=== PATIENT | female | born 1990 | race Caucasian/White ===

== ENCOUNTER 2016-11-13 22:21 | Emergency (ER) | payer OTHER ==
[~2016-11-13] VITALS: Ht 172.7 cm; Wt 70.3 kg
[~2016-11-13 22:21] MED LIST: AMOXIL500 MG PO; ANAPROX DS550 MG PO; ANUSOL-HC25 MG RC; AUGMENTIN 500 M1 TAB PO; CIPROFLOXACIN500 MG PO; CITRATE OF MAG300 ML PO; COMPAZINE10 MG PO; DIFLUCAN150 MG PO; DOXYCYCLINE MO100 MG PO; ELIMITE 5%60 GM PO; FLAGYL500 MG PO; HYDROXYZINE HCL25 MG PO; KEFLEX500 MG PO; LIDEX 0.05% CRE15 GM T; MACROBID100 M1 PO; MEDROL DOSEPAK4 MG PO; MIDRIN (DURADR1 CAP PO; MOTRIN600 MG PO; MOTRIN800 MG PO; NKHM; NKHM PO; PHENERGAN25 MG RC; PRENATAL1 TA1 PO; PRENATAL1 TA7 PO; PYRIDIUM100 MG PO; TORADOL10 MG PO; VIBRA-TAB100 MG PO; VIBRAMYCIN100 MG PO; VICODIN ES 7501 TA1 PO; ZITHROMAX250 MG PO; ZOFRAN ODT4 MG PO; ZOFRAN ODT4 MG SL; ZOFRAN4 MG PO; ZOFRAN8 MG PO; ZYRTEC10 MG PO
[2016-11-13 22:26] VITALS: BP 140/99
[2016-11-13] MEDS ORDERED: KEFLEX500 M1 PO (23:14)
[2016-11-13] MEDS ORDERED: NAPROSYN500 MG PO (23:14)
== END 2016-11-14 00:05 | disposition home or self-care (01) ==
LOC: ED 22:21
DX: S01.01XA Laceration without foreign body of scalp, initial encounter (principal); S00.83XA Contusion of other part of head, initial encounter; R03.0 Elevated blood-pressure reading, without diagnosis of hypertension; Y04.0XXA Assault by unarmed brawl or fight, initial encounter; Y93.9 Activity, unspecified; Y92.9 Unspecified place or not applicable; Y99.9 Unspecified external cause status

== ENCOUNTER 2017-05-05 17:45 | Emergency (ER) | payer OTHER ==
[~2017-05-05] VITALS: Ht 172.7 cm; Wt 72.6 kg
[~2017-05-05 17:45] MED LIST changes: +KEFLEX500 M1 PO; +NAPROSYN500 MG PO
[2017-05-05 17:56] VITALS: BP 137/92
[2017-05-05] MEDS ORDERED: ZYRTEC10 MG PO (18:28)
[2017-05-05] MEDS ORDERED: ZOFRAN ODT4 MG SL (18:28)
== END 2017-05-05 22:04 | disposition home or self-care (01) ==
LOC: ED 17:45
DX: B34.9 Viral infection, unspecified (principal); Z91.013 Allergy to seafood

== ENCOUNTER → 2017-09-12 | Day surgery (SDC) | payer OTHER ==
[~2017-09-12] VITALS: Ht 172.7 cm; Wt 72.6 kg
[~2017-09-12] MED LIST changes: +TRAMADOL HCL50 MG PO
[2017-09-12 08:00] VITALS: BP 115/79
[2017-09-12 09:55] VITALS: BP 106/52
[2017-09-12 10:06] VITALS: BP 109/63
[2017-09-12 10:25] VITALS: BP 107/66
== END ==
LOC: SDC 09-11 11:00
DX: L08.9 Local infection of the skin and subcutaneous tissue, unspecified (principal); K21.9 Gastro-esophageal reflux disease without esophagitis; Z98.890 Other specified postprocedural states; Z88.0 Allergy status to penicillin; Z91.013 Allergy to seafood; G43.909 Migraine, unspecified, not intractable, without status migrainosus; Z80.9 Family history of malignant neoplasm, unspecified

== ENCOUNTER 2018-01-19 16:24 | Emergency (ER) | payer OTHER ==
[~2018-01-19] VITALS: Ht 172.7 cm; Wt 72.6 kg
[2018-01-19 16:27] VITALS: BP 142/87
[2018-01-19] MEDS ORDERED: NAPROSYN500 MG PO (16:33)
[2018-01-19] MEDS ORDERED: KEFLEX500 M1 PO (16:33)
== END 2018-01-19 16:53 | disposition home or self-care (01) ==
LOC: ED 16:24
DX: S61.217A Laceration without foreign body of left little finger without damage to nail, initial encounter (principal); R03.0 Elevated blood-pressure reading, without diagnosis of hypertension; Z91.013 Allergy to seafood; W25.XXXA Contact with sharp glass, initial encounter; Y93.89 Activity, other specified; Y92.89 Other specified places as the place of occurrence of the external cause; Y99.8 Other external cause status

== ENCOUNTER 2018-03-14 10:47 | Emergency (ER) | payer OTHER ==
[~2018-03-14] VITALS: Ht 172.7 cm; Wt 68.0 kg
[2018-03-14 10:48] VITALS: BP 112/84
[2018-03-14] MEDS ORDERED: NAPROSYN500 MG PO (13:27)
== END 2018-03-14 12:31 | disposition home or self-care (01) ==
LOC: ED 10:47
DX: S92.512A Displaced fracture of proximal phalanx of left lesser toe(s), initial encounter for closed fracture (principal); Z91.013 Allergy to seafood; Z88.8 Allergy status to other drugs, medicaments and biological substances; W22.03XA Walked into furniture, initial encounter; Y93.89 Activity, other specified; Y92.89 Other specified places as the place of occurrence of the external cause; Y99.8 Other external cause status

== ENCOUNTER 2024-06-25 19:51 | Emergency (ER) | payer OTHER ==
[~2024-06-25] VITALS: Ht 172.7 cm; Wt 68.0 kg
[2024-06-25 19:59] VITALS: BP 130/78
[2024-06-25] MEDS ORDERED: AMOX-CLAV 875-1 EACH PO (20:13)
== END 2024-06-25 20:29 | disposition home or self-care (01) ==
LOC: ED 19:51
DX: J02.9 Acute pharyngitis, unspecified (principal); R50.9 Fever, unspecified; R52 Pain, unspecified; Z91.041 Radiographic dye allergy status; Z91.013 Allergy to seafood; Z87.42 Personal history of other diseases of the female genital tract; Z98.890 Other specified postprocedural states